=== PATIENT | male | born 1965 | race Caucasian/White ===

== ENCOUNTER 2018-09-06 04:38 | Emergency (ER) | payer OTHER ==
[2018-09-06] MEDS ORDERED: Sodium Chloride 0.9% 1,000 ML ONE ×2 (05:05→06:13)
[2018-09-06] MEDS ORDERED: Dicyclomine 10 MG CAP ONE (05:05)
[2018-09-06 05:14] LABS: Hemoglobin 15.9 g/dL (14.0-18.0); Mean Corpuscular HGB CONC 32.6 g/dL (32.0-36.0); Mean Corpuscular Hemoglobin 31.6 pg (27.0-31.0); Mean Corpuscular Volume 96.8 fL (78.0-98.0); Mean Platelet Volume 8.2 fL (7.4-10.4); Platelet Count 294 thou/uL (130-400); RBC Distribution Width 12.3 % (11.5-14.5); Red Blood Cell (RBC) Count 5.03 mill/uL (4.70-6.10); White Blood Cell (WBC) Count 7.1 thou/uL (4.8-10.8)
[2018-09-06] MEDS ORDERED: Acetaminophen 500 MG TAB ONE (05:17)
[2018-09-06 05:27] LABS: ALT (SGPT) 18 U/L (8-55); AST (SGOT) 17 U/L (5-34); Albumin 4.5 g/dL (3.5-5.0); Alkaline Phosphatase 91 U/L (40-150); Anion Gap 17 mmol/L (10-20); BUN (Urea Nitrogen) 14 mg/dL (8.4-25.7); Bilirubin, Total 0.7 mg/dL (0.2-1.2); Calc. Creatinine Clearance 0 mL/min (70-130); Calcium 9.7 mg/dL (7.8-10.44); Carbon Dioxide 24 mmol/L (22-29); Chloride 102 mmol/L (98-107); Estimated GFR-MDRD 59; Globulin 4.2 g/dL (2.4-3.5); Glucose 135 mg/dL (70-105); Potassium 4.1 mmol/L (3.5-5.1); Protein, Total 8.7 g/dL (6.0-8.3); Sodium 139 mmol/L (136-145)
[2018-09-06 05:51] LABS: Band 21 % (5-11); Lymphocytes 21 % (21-51); MDiff Complete? YES; Metamyelocyte 1 % (0-0); Monocytes 10 % (0-10); Neutrophil 47 % (42-75); Platelet Morphology Comment Appears Adequate; RBC Morphology Normal
[2018-09-06] MEDS ORDERED: Ondansetron PF 4 MG/2 ML Vial ONE (06:12)
[2018-09-06] MEDS ORDERED: Ketorolac Tromethamine 30 MG/ML VIAL ONE (06:13)
[2018-09-06] MEDS ORDERED: metroNIDAZOLE 500 MG/100 ML BAG ONE (07:21)
[2018-09-06] MEDS ORDERED: Cefepime 2 GM VIAL ONE (07:21)
--- NOTE | 2018-09-06 07:49 | CT ---
ABDOMEN AND PELVIS CT WITH CONTRAST: COMPARISON: No prior comparison. CLINICAL INDICATION: Abdominal pain. FINDINGS: There is mild volume loss and pleural-based density at the inferior chest. There are loops of dilate d unopacified fluid-filled small bowel, measuring up to approximately 3.4 cm in diameter. The transi tioning to normal caliber small bowel is seen within the right lower quadrant, although limited in as sessment without the presence of enteric contrast. There are numerous colonic diverticula. Metallic clips at the right lower quadrant are present and may relate to prior appendectomy. Correlate with surgical history. Mild mesenteric vascular congestion/edema present related to the above-described b owel abnormality. Low attenuation of the hepatic parenchyma indicates hepatic steatosis. No hydrone phrosis of the kidneys, or evidence of adrenal mass. The spleen is unremarkable. No peripancreatic inflammation. No pneumoperitoneum. There is a fat-containing noninflamed left inguinal hernia. IMPRESSION: 1. Findings indicate small bowel obstruction, point of transition at right lower quadrant, although limited in evaluation without enteric contrast. There is associated mesenteric congestion/edema. Re commend surgical consultation for further care. 2. Additional details are described above. POS: [facility]
[2018-09-06] MEDS ORDERED: Sodium Chloride 0.9% 100 ML BAG ONE (09:06)
[2018-09-06] MEDS ORDERED: Iopamidol 370 76% 100 ML VIAL ONE (09:37)
== END 2018-09-06 07:57 | disposition short-term general hospital (02) ==
LOC: MADERS 04:38
DX: A41.9 Sepsis, unspecified organism (principal); K56.609 Unspecified intestinal obstruction, unspecified as to partial versus complete obstruction; A09 Infectious gastroenteritis and colitis, unspecified; I10 Essential (primary) hypertension; F17.210 Nicotine dependence, cigarettes, uncomplicated; Z79.899 Other long term (current) drug therapy
CPT/HCPCS: 74177; 80053; 83605; 85025; 87040; 87149; 93005; 96361; 96365; 96367; 96375; J0692; J1885; J2405; J3490; J7050; Q9967